=== PATIENT | female | born 1975 | race Caucasian/White ===

== ENCOUNTER 2019-01-26 21:56 | Emergency (ER) | payer OTHER ==
[~2019-01-26] VITALS: Ht 157.4 cm; Wt 72.6 kg
[2019-01-26] MEDS ORDERED: AUGMENTIN 875875 MG PO (23:15)
== END 2019-01-27 00:03 | disposition home or self-care (01) ==
LOC: ED 21:56
DX: M77.52 Other enthesopathy of left foot and ankle (principal); X50.1XXA Overexertion from prolonged static or awkward postures, initial encounter; Y93.89 Activity, other specified; Y92.89 Other specified places as the place of occurrence of the external cause; Y99.8 Other external cause status